=== PATIENT | male | born 1940 | race Caucasian/White ===

== ENCOUNTER 2023-09-04 05:43 | Observation (INO) | payer MEDICARE ==
[2023-08-28 10:50] LABS: BASOPHILS % (AUTO) 0.6 % (0-1); EOSINOPHILS # (AUTO) 0.1 X10'3 (0-0.9); EOSINOPHILS % (AUTO) 2.8 % (0-6); LYMPHOCYTES % (AUTO) 24.6 % (21-51); MEAN CORPUSCULAR HEMOGLOBIN 31.7 PG (27.0-31.0); MEAN CORPUSCULAR HGB CONC 33.7 g/dL (33.0-36.5); MEAN CORPUSCULAR VOLUME 94.1 FL (78-98); MEAN PLATELET VOLUME 8.8 FL (7.4-10.4); MONOCYTES # (AUTO) 0.5 X10'3 (0-0.9); MONOCYTES % (AUTO) 11.8 % (2-12); NEUTROPHILS # (AUTO) 2.4 X10'3 (1.8-7.7); NEUTROPHILS % (AUTO) 60.2 % (42-75); PRE OP HEMATOCRIT 40.2 % (42.0-52.0); PRE OP HEMOGLOBIN 13.5 g/dL (14.0-17.9); PRE OP PLATELET COUNT 144 X10'3 (140-440); RED BLOOD COUNT 4.27 X10'6 (4.70-6.10); RED CELL DISTRIBUTION WIDTH 13.6 % (11.5-14.5)
[2023-08-28 11:06] LABS: ALBUMIN 3.2 G/DL (3.4-5.0); ALBUMIN/GLOBULIN RATIO 0.9 (1.1-1.5); ALKALINE PHOSPHATASE 82 IU/L (46-116); BLOOD UREA NITROGEN 23 MG/DL (7-18); BUN/CREATININE RATIO 25.6 (10.0-20.0); CALCIUM 8.2 MG/DL (8.5-10.1); CHLORIDE 106 MMOL/L (99-107); PRE OP ALT 21 U/L (30-65); PRE OP ANION GAP 9 (8-16); PRE OP AST 17 U/L (10-37); PRE OP BILIRUB, TOTAL 0.5 MG/DL (0.0-1.0); PRE OP GLUCOSE 94 MG/DL (70-104); PRE OP POTASSIUM 4.7 MMOL/L (3.4-5.1); PRE OP SODIUM 144 MMOL/L (135-145); TOTAL CARBON DIOXIDE 29.2 MMOL/L (24-32); TOTAL PROTEIN 6.9 G/DL (6.4-8.2); eGFR 81 ML/MIN
[~2023-09-04] VITALS: Ht 182.9 cm; Wt 109.2 kg
[2023-09-04] VITALS (27 sets, daily range): BP systolic 119–181; BP diastolic 70–104; PULSE 68–99; RESP 14–18; TEMP 97–97.8; O2SAT 90–97
[~2023-09-04 05:43] MED LIST: ALEN70TA37 PO; CITA20TA16 PO; FAMO20TA8 PO; OLME20TA69 PO; OMEP40CA21 PO; TROS20TA4 PO
[2023-09-04] MEDS: famotidine 20mg tablet PO ONE (06:22)
[2023-09-04] MEDS: cefazolin 2gm/D5W 100mL 100 ML IV ONE (06:22)
[2023-09-04] MEDS: ringers solution, lacted 1,000 ML IV SCH ×2 (06:22→07:25)
[2023-09-04] MEDS ORDERED: rocuronium 10mg/ml inj IV ONE ×4 (07:21→08:49)
[2023-09-04] MEDS ORDERED: fentaNYL/PF 50MCG/1 ML 2ML syringe ONE (07:21)
[2023-09-04] MEDS ORDERED: midazolam 1 mg/ML 2ml injection ONE (07:21)
[2023-09-04] MEDS ORDERED: propofol inj 20 ML IV ONE (07:22)
[2023-09-04] MEDS ORDERED: fentaNYL/PF 50MCG/1 ML 2ML syringe IV PRN ×2 (07:25)
[2023-09-04] MEDS ORDERED: morphine 2 MG/ML inj. syringe IV PRN (07:25)
[2023-09-04] MEDS ORDERED: ondansetron/PF 4mg/2ml inj IV PRN ×2 (07:25→10:55)
[2023-09-04] MEDS ORDERED: hydrALAZINE 20mg/ml inj. IV PRN (07:25)
[2023-09-04] MEDS ORDERED: morphine 4 MG/ML inj SYRINge IV PRN (07:25)
[2023-09-04] MEDS ORDERED: sevoflurane 250ml liquid IH ONE (07:50)
[2023-09-04] MEDS: BUPIVAcaine/PF 2.5mg/ml (0.25%) 10ml vial ONE (08:36)
[2023-09-04] MEDS: LIDOcaine 1% 30ml preserv. free vial ONE (08:36)
[2023-09-04] MEDS ORDERED: acetaminophen 1,000mg/100ml IV 100 ML IV ONE (08:44)
[2023-09-04] MEDS ORDERED: ondansetron/PF 4mg/2ml inj ONE (08:50)
[2023-09-04] MEDS ORDERED: labetalol 20mg/4ml (5mg/ml) syringe IV ONE (08:51)
[2023-09-04] MEDS ORDERED: sugammadex 200mg/2ml injection IV ONE (10:19)
[2023-09-04] MEDS ORDERED: naloxone 0.4 mg/ml inj IV PRN (10:55)
[2023-09-04] MEDS: labetalol 20mg/4ml (5mg/ml) syringe IV PRN (11:00)
[2023-09-04] MEDS: HYDROmorph/NS 0.2 mg/ml PCA 100 ML IV SCH (11:52)
[2023-09-04] MEDS: hydrALAZINE 20mg/ml inj. IV PRN (13:59)
[2023-09-04] MEDS: normal saline 1000ml 1,000 ML IV SCH (14:04)
[2023-09-04] MEDS: LidoCAINE 2% Topical Jelly 11mL syringe (UROJET) TOP ONE (15:42)
[2023-09-04] MEDS: oxybutynin 5mg tablet PO SCH (20:37)
[2023-09-04] MEDS: heparin, porcine 5000 units/ml vial SQ SCH (20:38)
[2023-09-05 02:00] VITALS: BP 126/73; PULSE 78; RESP 16; TEMP 98; O2SAT 92
[2023-09-05 06:00] VITALS: BP 135/80; PULSE 75; RESP 18; TEMP 98.4; O2SAT 92
[2023-09-05 07:55] VITALS: RESP 18; O2SAT 92
[2023-09-05] MEDS: citalopram 20mg tablet PO SCH (07:56)
[2023-09-05] MEDS: losartan 50mg tablet PO SCH (07:57)
[2023-09-05 10:00] VITALS: BP 117/70; PULSE 82; RESP 17; TEMP 97.6; O2SAT 94
[2023-09-05] MEDS ORDERED: PER5325T PO (13:14)
[2023-09-05] MEDS ORDERED: oxyCODONE/APAP 5-325mg tablet PO PRN (13:15)
[2023-09-05 13:47] VITALS: RESP 20
[2023-09-05] MEDS: oxyCODONE/APAP 5-325mg tablet PO ONE (13:47)
[2023-09-05] MEDS: PCA WASTE DOCUMENTATION 1 MG ML MC SCH (14:37)
== END 2023-09-05 16:45 | disposition home or self-care (01) ==
LOC: PAS 05:43 → EDSTATUS 07:30 → PAS IN 10:57 → SUR 3N 13:25
PROVIDERS: ADMIT Surgery; ATTEND Surgery
DX: K44.9 Diaphragmatic hernia without obstruction or gangrene (principal); F41.8 Other specified anxiety disorders; I10 Essential (primary) hypertension; K21.9 Gastro-esophageal reflux disease without esophagitis; N40.0 Benign prostatic hyperplasia without lower urinary tract symptoms; M85.80 Other specified disorders of bone density and structure, unspecified site; Z79.899 Other long term (current) drug therapy
CPT/HCPCS: 36415; 43282; 71045; 80053; 82948; 85025; 96365; 96366; 96372; 96375; C1781; G0378; J0131; J0360; J0690; J1100; J1170; J1644; J2250; J2405; J2704; J3010; J3490; J7030; J7120; A4314; A4338; A4615; A4618; J2370